=== PATIENT | male | born 1995 | race Caucasian/White ===

== ENCOUNTER 2020-10-12 08:44 | Emergency (ER) | payer OTHER ==
[~2020-10-12] VITALS: Ht 170.2 cm; Wt 96.6 kg
[2020-10-12 08:53] VITALS: BP 134/77
[2020-10-12] MEDS ORDERED: NACL 0.9% 1,000 ML IV ONE (09:00)
--- NOTE | 2020-10-12 09:00 | NUR ---
Patient ambulated with steady gait to bed 11
[2020-10-12] MEDS ORDERED: cefTRIAXone 500 MG in LIDOCAINE MPF 1% 1 ML IM ONE (09:05)
--- NOTE | 2020-10-12 09:06 | NUR ---
25 YO MALE BIBS C/O 11/24 SHARP HEADACHE AND DIARRHEA X4DAYS. DENIES N/V. STATES TOOK IBUPROFEN WITH NO RELIEF. PT STATES HE VISITED [facility] ON WEDNESDAY BUT HEADACHE WAS NOT TREATED. DENIES URINARY PROBLEMS. DENIES CHEST PAIN, SOB, FEVER. STATES HE DOES FEEL +CHILLS. SENSATION & ROM INTACT, STRENGTH GOOD. A&OX4, RR EVEN AND UNLABORED. MEDHX: ASTHMA, GOUT, MIGRAINES ALLERGIES: DENIES
[2020-10-12] MEDS ORDERED: KETOROLAC 30 MG/ML VIAL IVP ONE (09:10)
--- NOTE | 2020-10-12 09:17 | NUR ---
DR PAUL AT BEDSIDE EVALUATING PT.
[2020-10-12] MEDS ORDERED: cefTRIAXone 500 MG VIAL ONE (09:34)
[2020-10-12] MEDS ORDERED: LIDOCAINE MPF 1% 5 ML ONE (09:45)
[2020-10-12 09:58] LABS: APPEARANCE,URINE HAZY (CLEAR); BILIRUBIN,URINE NEGATIVE (NEGATIVE); BLOOD, URINE 1+ (NEGATIVE); COLOR,URINE YELLOW (YELLOW); LEUKOCYTE ESTERASE ,URINE 2+ (NEGATIVE); NITRITE, URINE POSITIVE (NEGATIVE); UGLUCOSE NEGATIVE (NEGATIVE)
--- NOTE | 2020-10-12 10:09 | NUR ---
[employer] WORK DIRECTOR AT BEDSIDE COLLECTING BLOODWORK.
[2020-10-12 10:17] LABS: BASOPHILS # (AUTO) 0.1 K/uL (0.00-0.22); BASOPHILS % (AUTO) 0.7 % (0.0-2.0); EOSINOPHILS # (AUTO) 0.1 K/uL (0-0.4); EOSINOPHILS % (AUTO) 1.3 % (0.0-4.0); HEMATOCRIT 42.7 % (36-52); HEMOGLOBIN 14.4 g/dL (12.0-18.0); LYMPHOCYTES # (AUTO) 2.1 K/uL (2.0-11.5); LYMPHOCYTES % (AUTO) 22.1 % (20.5-51.1); MEAN CORPUSCULAR HEMOGLOBIN 28 pg (27-31); MEAN CORPUSCULAR HGB CONC 34 g/dL (33-37); MEAN CORPUSCULAR VOLUME 82.2 fL (80-94); MONOCYTES # (AUTO) 0.8 K/uL (0.8-1.0); MONOCYTES % (AUTO) 8.7 % (1.7-9.3); NEUTROPHILS # (AUTO) 6.3 K/uL (1.8-7.7); NEUTROPHILS % (AUTO) 67.2 % (42.2-75.2); PLATELET COUNT (AUTO) 271 K/uL (140-450); RED BLOOD CELL COUNT(AUTO) 5.19 MIL/uL (4.20-6.10); RED CELL DISTRIBUTION WIDTH 13.4 % (11.6-13.7); WHITE BLOOD COUNT (AUTO) 9.4 K/uL (4.8-10.8)
[2020-10-12 10:34] LABS: ANION GAP 11.9 (8-16); CARBON DIOXIDE 27.3 mmol/L (21-32); CREATININE 1.1 mg/dL (0.6-1.3); POTASSIUM 4.2 mmol/L (3.5-5.1)
[2020-10-12 11:05] LABS: RBC,URINE NONE SEEN /HPF (0-5); WBC,URINE 60-80 /HPF (0-5)
[2020-10-12 11:14] VITALS: BP 137/78
--- NOTE | 2020-10-12 11:20 | NUR ---
PATIENT IN BED RESTING, RR EVEN AND UNLABORED.
[2020-10-12] MEDS ORDERED: VIB100 PO (13:02)
[2020-10-12] MEDS ORDERED: ACET-8386 PO (13:02)
[2020-10-12] MEDS ORDERED: IBUP-2213 PO (13:02)
--- NOTE | 2020-10-12 13:11 | NUR ---
Patient discharged with v/s stable. Written and verbal after care instructions given and explained. Patient alert, oriented and verbalized understanding of instructions. Ambulatory with steady gait. All questions addressed prior to discharge. ID band removed. Patient advised to follow up with PMD. Rx of NORCO, IBUPROFEN, DOXYCYCLINE given. Patient educated on indication of medication including possible reaction and side effects. Opportunity to ask questions provided and answered.
[2020-10-20 12:37] LABS: RAPID PLASMA REAGIN NON-REACTIVE (Non Reactiv)
== END 2020-10-12 13:11 | disposition home or self-care (01) ==
LOC: MED 08:44
DX: R51.9 Headache, unspecified (principal); N39.0 Urinary tract infection, site not specified; R42 Dizziness and giddiness; R19.7 Diarrhea, unspecified; J45.909 Unspecified asthma, uncomplicated; F12.90 Cannabis use, unspecified, uncomplicated
CPT/HCPCS: 36415; 80048; 81001; 85025; 86592; 86703; 87086; 87491; 96361; 96372; 96374; 99284; J0696; J1885; J2001; J7030